=== PATIENT | female | born 1975 | race Caucasian/White ===

== ENCOUNTER → 2017-05-20 | Day surgery (SDC) | payer OTHER ==
--- NOTE | 2017-05-20 14:15 | RADIOLOGY REPORT (SQ) ---
EXAM DESCRIPTION: ARTHRO SHOULDER INJECTION; FLUORO/NEEDLE PLACEMENT COMPLETED DATE/TIME: 05/20/2017 1:46 pm REASON FOR STUDY: LEFT SHOULDER PAIN (M25.512) M25.512 PAIN IN LEFT SHOULDER COMPARISON: None. FLUOROSCOPY TIME: 7 seconds 1 digital radiographic image saved to PACS. LIMITATIONS: None. PROCEDURE: Procedure, risks, benefits and alternatives explained to patient who then gave written co nsent. The posterior left shoulder was marked and a time out was called for correct procedure verific ation. Posterior entry site marked using fluoroscopic guidance. Shoulder prepped and draped using s terile technique. Local anesthesia achieved using 8 mL of 1% lidocaine injection. 22 gauge spinal n eedle introduced into the joint space under direct fluoroscopic visualization. Non-ionic contrast ins tilled to confirm intra-articular position. Dilute gadolinium solution then injected. Needle removed and entry site covered with sterile bandage. No immediate complications noted. TECHNIQUE: Digital images acquired during fluoroscopy and stored on PACS. Patient immediately take n to the MR suite for additional imaging. INJECTION LOCATION: Posterior left glenohumeral joint CONTRAST TYPE AND AMOUNT: 1 mL of Isovue-300 was injected to confirm intra-articular needle placement followed by 10 mL of dilute ProHance gadolinium for MR arthrogram IMPRESSION: SUCCESSFUL NEEDLE PLACEMENT AND INJECTION FOR LEFT SHOULDER MR ARTHROGRAM USING POSTERIO R APPROACH. COMMENT: Quality ID [id number]: Final reports for procedures using fluoroscopy that document radiation exp osure indices, or exposure time and number of fluorographic images (if radiation exposure indices are not available) TECHNICAL DOCUMENTATION: JOB ID: [id number] [employer]- All Rights Reserved
--- NOTE | 2017-05-20 15:01 | RADIOLOGY REPORT (SQ) ---
EXAM DESCRIPTION: MRI LT UPPER JOINT WITH COMPLETED DATE/TIME: 05/20/2017 2:29 pm REASON FOR STUDY: LEFT SHOULDER PAIN (M25.512) M25.512 PAIN IN LEFT SHOULDER COMPARISON: Arthrogram same date TECHNIQUE: Left shoulder post arthrogram images acquired and stored on PACS. Multiplanar imaging to include fat sensitive sequences such as T1, water sensitive sequences such as FST2/STIR, cartilage se nsitive sequences such as FSPD/gradient-echo sequences. LIMITATIONS: Mild motion artifact FINDINGS: BONE MARROW AND CORTEX: Small subcortical cyst in the left humeral head greater tuberosity best shown on axial image 7 and sagittal image 6. JOINT OR BURSAL EFFUSION: Adequate distention of the joint space with arthrogram contrast. No leakag e of contrast into the subacromial/ subdeltoid bursa. GLENO-HUMERAL ARTICULATION: Normal articulation. No subluxation. No cystic change. No osteophytes or cartilage loss. ACROMION AND AC JOINT: Type 2 No down-sloping or distal spur. Sub-acromial space maintained. No sig nificant AC joint arthropathy. ROTATOR CUFF AND INTERVAL: Very mild tendinopathy in the distal supraspinatus tendon, seen as spotty high signal on sagittal image 5. Infraspinatus, subscapularis intact. No rotator interval tear. No rotator interval thickening to suggest adhesive capsulitis. LABRUM AND BICEPS LABRAL COMPLEX: Intact. No labral tear. Intra-articular long-head biceps tendon m ildly increased in signal from mild tendinopathy. Distal biceps in normal location in bicipital groo ve. REMAINDER OF LABRUM AND IGHL : No gross tear or paralabral cyst formation. Labral evaluation is less than optimal without joint distention. No thickening of IGHL to suggest adhesive capsulitis. PERIARTICULAR AND ADJACENT SOFT TISSUES: No masses or abnormal nodes. OTHER: No other significant finding. IMPRESSION: Mild supraspinatus tendinopathy. Mild intra-articular long head biceps tendinopathy. TECHNICAL DOCUMENTATION: JOB ID: [id number] [employer] [facility]- All Rights Reserved
== END ==
LOC: RAD 12:43
PROVIDERS: ATTEND Physician Assistant
PROC: BP09ZZZ Plain Radiography of Left Shoulder (ICD-10-PCS; principal; 2017-05-20)
DX: M25.512 Pain in left shoulder (principal)
CPT/HCPCS: 73222; 77002; 23350; A9576

== ENCOUNTER → 2017-11-29 | Outpatient (CLI) | payer OTHER ==
[2017-11-29 17:01] LABS: ABSOLUTE LYMPHOCYTES (AUTO) 1.3 10^3/uL (0.5-4.7); ABSOLUTE MONOCYTES (AUTO) 0.6 10^3/uL (0.1-1.4); ABSOLUTE NEUT (AUTO) 4.8 10^3/uL (1.7-8.2); BASOPHILS % (AUTO) 0.4 % (0-2); EOSINOPHILS % (AUTO) 0.7 % (0-6); HEMATOCRIT 35.7 % (36.0-47.0); HEMOGLOBIN 11.9 g/dL (12.0-15.5); LYMPHOCYTES % (AUTO) 19.6 % (13-45); MEAN CORPUSCULAR HEMOGLOBIN 30.8 pg (27.0-33.4); MEAN CORPUSCULAR HGB CONC 33.5 g/dL (32.0-36.0); MEAN CORPUSCULAR VOLUME 92 fl (80-97); MONOCYTES % (AUTO) 8.4 % (3-13); PLATELET COUNT 239 10^3/uL (150-450); RED BLOOD COUNT 3.88 10^6/uL (3.72-5.28); RED CELL DISTRIBUTION WIDTH 12.8 % (11.5-14.0); SEGMENTED NEUTROPHILS % (AUTO) 70.9 % (42-78); TOTAL CELLS COUNTED % (AUTO) 100 %; WHITE BLOOD COUNT 6.8 10^3/uL (4.0-10.5)
[2017-11-29 17:38] LABS: ALANINE AMINOTRANSFERASE 19 U/L (9-52); ALBUMIN 3.7 g/dL (3.5-5.0); ALKALINE PHOSPHATASE 52 U/L (38-126); ANION GAP 8 (5-19); ASPARTATE AMINO TRANSFERASE 15 U/L (14-36); BILIRUBIN,DIRECT 0.1 mg/dL (0.0-0.4); BILIRUBIN,TOTAL 0.1 mg/dL (0.2-1.3); BLOOD UREA NITROGEN 12 mg/dL (7-20); CALCIUM 9.9 mg/dL (8.4-10.2); CARBON DIOXIDE 28 mmol/L (22-30); CHLORIDE 102 mmol/L (98-107); GLUCOSE 120 mg/dL (75-110); POTASSIUM 4.5 mmol/L (3.6-5.0); SODIUM 137.7 mmol/L (137-145); TOTAL PROTEIN 6.1 g/dL (6.3-8.2)
== END ==
LOC: OD 16:28
PROVIDERS: ATTEND Orthopaedic Surgery Sports Medicine
DX: Z11.2 Encounter for screening for other bacterial diseases (principal); I10 Essential (primary) hypertension
CPT/HCPCS: 36415; 80053; 85025; 87070